=== PATIENT | female | born 1965 | race Caucasian/White ===

== ENCOUNTER 2023-02-12 06:51 | Outpatient (OUT) | payer OTHER, SELFPAY ==
[2023-02-12 08:37] LABS: Thyroid Stimulating Hormone 2.655 uIU/mL (0.358-3.740)
[2023-02-12 11:27] LABS: Free T4 0.93 ng/dL (0.76-1.46)
== END 2023-02-12 06:52 | disposition home or self-care (01) ==
LOC: LAB 06:51
PROVIDERS: PCP Family Medicine; Visit Provider Family Medicine
DX: R53.83 Other fatigue (principal)
CPT/HCPCS: 36415; 84439; 84443

== ENCOUNTER 2023-06-18 19:57 | Outpatient (OUT) | payer OTHER, SELFPAY | END 2023-06-18 19:58 | disposition home or self-care (01) | LOC: SLEEP 19:57 | PROVIDERS: PCP Nurse Practitioner; Visit Provider Nurse Practitioner | DX: G47.33 Obstructive sleep apnea (adult) (pediatric) (principal); G25.81 Restless legs syndrome | CPT/HCPCS: 95811 ==